=== PATIENT | male | born 1985 | race Native Hawaiian/Other Pacific Islander ===

== ENCOUNTER 2016-06-29 20:01 | Emergency (ER) | payer OTHER ==
[~2016-06-29] VITALS: Ht 180.3 cm; Wt 108.9 kg
== END 2016-06-29 21:40 | disposition home or self-care (01) ==
LOC: ED 20:01
PROC: 2W3EX1Z Immobilization of Right Hand using Splint (ICD-10-PCS; principal; 2016-06-29)
DX: S62.306A Unspecified fracture of fifth metacarpal bone, right hand, initial encounter for closed fracture (principal); W54.1XXA Struck by dog, initial encounter; Y92.89 Other specified places as the place of occurrence of the external cause
CPT/HCPCS: 99283

== ENCOUNTER 2017-03-31 20:00 | Emergency (ER) | payer OTHER ==
[~2017-03-31] VITALS: Ht 180.3 cm; Wt 117.0 kg
[2017-03-31 20:56] LABS: PLATELET COUNT 221 K/uL (142-355)
[2017-03-31 21:09] LABS: POTASSIUM 3.8 mmol/L (3.6-5.2); SODIUM 134 mmol/L (136-145)
[2017-03-31 22:24] VITALS: BP 117/79; TEMP 99
== END 2017-03-31 22:25 | disposition home or self-care (01) ==
LOC: ED 20:00
DX: J02.0 Streptococcal pharyngitis (principal)
CPT/HCPCS: 36415; 80053; 81000; 85027; 87804; 87880; 96372; 99283; J0696; J1885

== ENCOUNTER 2018-03-29 10:49 | Outpatient (CLI) | payer BC ==
[2018-03-29 11:05] LABS: PLATELET COUNT 276 K/uL (142-355)
[2018-03-29 11:49] LABS: POTASSIUM 3.6 mmol/L (3.6-5.2)
== END 2018-03-29 22:32 | disposition home or self-care (01) ==
LOC: LABW 10:49
PROVIDERS: Nurse Practitioner Family
DX: R19.7 Diarrhea, unspecified (principal); R10.9 Unspecified abdominal pain
CPT/HCPCS: 36415; 80053; 85027

== ENCOUNTER 2021-11-02 08:17 | Outpatient (CLI) | payer BC ==
[~2021-11-02] VITALS: Ht 180.3 cm; Wt 105.2 kg
[2021-11-02 12:45] VITALS: BP 118/68; TEMP 98
[2021-11-02 13:35] VITALS: BP 108/68; TEMP 98.2
[2021-11-02 13:50] VITALS: BP 107/63; TEMP 98.5
[2021-11-02 14:25] VITALS: BP 110/67; TEMP 98.1
== END 2021-11-02 19:52 | disposition home or self-care (01) ==
LOC: INF 08:17
PROVIDERS: ATTEND Internal Medicine
DX: Z23 Encounter for immunization (principal); U07.1 COVID-19
CPT/HCPCS: 96374; Q0222

== ENCOUNTER 2021-12-06 14:07 | Outpatient (CLI) | payer BC | END 2021-12-06 19:23 | disposition home or self-care (01) | LOC: RAD 14:07 | PROVIDERS: ATTEND Nurse Practitioner Family | DX: M54.50 Low back pain, unspecified (principal); M25.511 Pain in right shoulder ==